=== PATIENT | female | born 1990 | race Caucasian/White ===

== ENCOUNTER 2017-03-11 19:00 | Emergency (ER) | payer OTHER ==
[~2017-03-11] VITALS: Ht 154.9 cm; Wt 74.0 kg
[~2017-03-11 19:00] MED LIST: CIPROFLOXACIN500 M1; CIPROFLOXACIN500 M1 PO; ENDOCET 5-3251 EACH; ONDANSETRON HCL4 M1; ONDANSETRON HCL4 M1 PO; PERCOCET 5/31 TABLET PO
[2017-03-11 20:28] LABS: HEMATOCRIT 31.9 % (36.0-46.0); HEMOGLOBIN 10.9 G/DL (11.9-15.5); MCH 31.5 PG (29.0-34.0); MCHC 34.2 G/DL (30.0-36.0); MCV 92.2 FL (83-99); PLATELET COUNT 310 K/uL (156-360); RBC DIS.WIDTH-CV 12.3 % (11.8-14.6); RBC DIS.WIDTH-SD 41.1 % (39-53); RED BLOOD COUNT 3.46 M/uL (3.80-5.20); WHITE BLOOD COUNT 9.5 K/uL (4.1-10.2)
[2017-03-11 20:36] LABS: ALBUMIN 3.5 g/dL (3.2-4.8); CHLORIDE 105 mEq/L (99-109); POTASSIUM 3.9 mEq/L (3.7-5.4); SODIUM 134 mEq/L (136-147)
[2017-03-11 20:38] LABS: GLUCOSE 102 mg/dL (70-99); TOTAL PROTEIN 7.6 g/dL (6.4-8.3)
[2017-03-11 20:40] LABS: TOTAL BILIRUBIN 0.2 mg/dL (0.0-1.0)
[2017-03-11 20:42] LABS: ALKALINE PHOSPHATASE 104 IU/L (3-129); CREATININE 0.7 mg/dL (0.6-1.3); GFR ESTIMATE (CALCULATED) > 59 mL/min/
[2017-03-11 20:43] LABS: AST (GOT) 18 IU/L (2-34); DIRECT BILIRUBIN 0.1 mg/dL (0.0-0.3); UREA NITROGEN (BUN) 6 mg/dL (9-23)
[2017-03-11 20:45] LABS: ALT (GPT) 17 IU/L (3-49)
[2017-03-11 21:07] LABS: APPEARANCE CLEAR ((CLEAR)); BILIRUBIN NEGATIVE; BLOOD NEGATIVE; COLOR YELLOW ((YELLOW)); GLUCOSE (STRIP) NEGATIVE; KETONES NEGATIVE; LEUKOCYTES SMALL; NITRITE NEGATIVE; PROTEIN (STRIP) NEGATIVE; SPECIFIC GRAVITY 1.021 (1.000-1.030); UROBILINOGEN 0.2 MG/DL (0.2-1.0)
[2017-03-11 21:10] LABS: BACTERIA RARE /HPF; EPITHELIAL CELLS 1+ /HPF; MUCUS TRACE /LPF; RED BLOOD CELLS 0-5 /HPF (0-5); UCUL ADDED? NO; WHITE BLOOD CELLS 0-5 /HPF (0-5)
[2017-03-11] MEDS ORDERED: PREDNISONE20 MG PO (23:58)
[2017-03-11] MEDS ORDERED: TAMIFLU75 MG PO (23:58)
[2017-03-12 00:49] VITALS: BP 122/78
== END 2017-03-12 00:54 | disposition home or self-care (01) ==
LOC: EME 19:00
PROVIDERS: Physician Assistant
DX: O99.513 Diseases of the respiratory system complicating pregnancy, third trimester (principal); J10.1 Influenza due to other identified influenza virus with other respiratory manifestations; J45.901 Unspecified asthma with (acute) exacerbation; O99.89 Other specified diseases and conditions complicating pregnancy, childbirth and the puerperium; M94.0 Chondrocostal junction syndrome [Tietze]; Z3A.32 32 weeks gestation of pregnancy; O99.333 Smoking (tobacco) complicating pregnancy, third trimester; F17.200 Nicotine dependence, unspecified, uncomplicated
CPT/HCPCS: 71046; 80048; 80076; 81003; 85027; 87502; 94640; 99281; 99285; J7030; J7512

== ENCOUNTER 2017-05-05 12:41 | Inpatient (IN) | payer OTHER ==
[2017-05-05] VITALS (9 sets, daily range): BP systolic 104–122; BP diastolic 61–80
[~2017-05-05] VITALS: Ht 154.9 cm; Wt 76.2 kg
[~2017-05-05 12:41] MED LIST changes: +PREDNISONE20 MG PO; +TAMIFLU75 MG PO
[2017-05-05 13:38] LABS: BASOPHIL (%) 0.4 % (0-1); BASOPHIL COUNT 0.1 K/uL (0-0.1); EOSINOPHIL (%) 0.6 % (0-5); EOSINOPHIL COUNT 0.1 K/uL (0-0.3); HEMATOCRIT 30.9 % (36.0-46.0); HEMOGLOBIN 10.5 G/DL (11.9-15.5); IMMATURE GRANULOCYTE (%) 0.6 % (0.0-0.7); LYMPHOCYTE (%) 14.8 % (15-42); LYMPHOCYTE COUNT 2.9 K/uL (1.0-2.8); MCH 31.1 PG (29.0-34.0); MCV 91.4 FL (83-99); MONOCYTE (%) 4.9 % (3-12); NEUTROPHIL (%) 78.7 % (45-76); NEUTROPHIL COUNT 15.4 K/uL (1.8-6.4); PLATELET COUNT 381 K/uL (156-360); RBC DIS.WIDTH-CV 13.1 % (11.8-14.6); RED BLOOD COUNT 3.38 M/uL (3.80-5.20); WHITE BLOOD COUNT 19.6 K/uL (4.1-10.2)
[2017-05-05 14:29] LABS: THC CANNABINOIDS NEGATIVE (50 ng/mL)
[2017-05-05 14:30] LABS: AMPHETAMINE NEGATIVE (500 ng/mL); BARBITURATES NEGATIVE (200 ng/mL); BENZODIAZEPINES NEGATIVE (150 ng/mL); BUPRENORPHINE NEGATIVE (10 ng/mL); COCAINE NEGATIVE (150 ng/mL); METHADONE NEGATIVE (200 ng/mL); METHAMPHETAMINE NEGATIVE (500 ng/mL); OPIATES (MORPHINE) NEGATIVE (100 ng/mL); OXYCODONE NEGATIVE (100 ng/mL); PHENCYCLIDINE NEGATIVE (25 ng/mL); PROPOXYPHENE NEGATIVE (300 ng/mL); TRICYCLIC ANTIDEPRESSANTS NEGATIVE (300 ng/mL)
[2017-05-06] VITALS (8 sets, daily range): BP systolic 105–121; BP diastolic 55–73
[2017-05-06 07:59] LABS: BASOPHIL (%) 0.3 % (0-1); EOSINOPHIL (%) 1.5 % (0-5); EOSINOPHIL COUNT 0.2 K/uL (0-0.3); HEMATOCRIT 25.3 % (36.0-46.0); HEMOGLOBIN 8.1 G/DL (11.9-15.5); IMMATURE GRANULOCYTE (%) 0.8 % (0.0-0.7); LYMPHOCYTE (%) 20.3 % (15-42); LYMPHOCYTE COUNT 2.8 K/uL (1.0-2.8); MCH 30.3 PG (29.0-34.0); MCV 94.8 FL (83-99); MONOCYTE (%) 4.3 % (3-12); MONOCYTE COUNT 0.6 K/uL (0-0.8); NEUTROPHIL (%) 72.8 % (45-76); NEUTROPHIL COUNT 10.2 K/uL (1.8-6.4); PLATELET COUNT 316 K/uL (156-360); RBC DIS.WIDTH-CV 13.2 % (11.8-14.6); RBC DIS.WIDTH-SD 45.3 % (39-53); RED BLOOD COUNT 2.67 M/uL (3.80-5.20)
[2017-05-06 08:10] LABS: CHLORIDE 106 MEQ/L (99-109); CREATININE 0.6 MG/DL (0.6-1.3); GFR ESTIMATE (CALCULATED) > 59 mL/min/; GLUCOSE 71 mg/dL (70-99); POTASSIUM 4.3 MEQ/L (3.7-5.4); SODIUM 135 MEQ/L (136-147); UREA NITROGEN (BUN) 8 mg/dL (9-23)
[2017-05-06] MEDS ORDERED: PRENATAL TABLE1 EAC3 PO (23:02)
[2017-05-06] MEDS ORDERED: VAGINAL ITCH CR30 GM TP (23:03)
[2017-05-07 02:43] VITALS: BP 99/51
[2017-05-07 07:19] VITALS: BP 109/67
[2017-05-07 10:54] VITALS: BP 117/65
[2017-05-07 15:17] VITALS: BP 125/56
[2017-05-08 00:27] VITALS: BP 113/56
[2017-05-09 07:23] VITALS: BP 126/79
[2017-05-09] MEDS ORDERED: ENDOCET 5-3251 EACH PO (09:05)
[2017-05-09] MEDS ORDERED: IBUPROFEN800 MG PO (09:05)
== END 2017-05-09 13:09 | disposition home or self-care (01) | DRG 765 ==
LOC: LDRP-OP 12:41 → 2WEST 12:42 → LDRP-OP 06-06 15:28
PROVIDERS: Advanced Practice Midwife; Obstetrics & Gynecology
PROC: 10D00Z1 Extraction of Products of Conception, Low, Open Approach (ICD-10-PCS; principal; 2017-05-05)
DX: O76 Abnormality in fetal heart rate and rhythm complicating labor and delivery (principal); O36.5930 Maternal care for other known or suspected poor fetal growth, third trimester, not applicable or unspecified; O72.1 Other immediate postpartum hemorrhage; O99.334 Smoking (tobacco) complicating childbirth; F17.210 Nicotine dependence, cigarettes, uncomplicated; O99.824 Streptococcus B carrier state complicating childbirth; J45.909 Unspecified asthma, uncomplicated; O99.52 Diseases of the respiratory system complicating childbirth; Z3A.39 39 weeks gestation of pregnancy; Z37.0 Single live birth
CPT/HCPCS: 76818; 80048; 80306 90; 85025; 86850; 86900; 86901; 88307; J0690; J1200; J1885; J2274; J7120